=== PATIENT | female | born 1985 | race Caucasian/White ===

== ENCOUNTER 2023-03-31 09:52 | Outpatient (REF) | payer OTHER, SELFPAY ==
--- NOTE | ~2023-03-31 | US_ITS ---
EXAMINATION: US THYROID CLINICAL INFORMATION: Goiter. COMPARISON: Ultrasound soft tissue head/neck thyroid dated 02/17/2015. TECHNIQUE: Linear transducer grayscale and color Doppler examination with attention to the region of the thyroid. FINDINGS: SIZE: Measurements of the thyroid lobes and nodules are given in sagittal, anteroposterior and transverse dimensions respectively. Right Thyroid Lobe: 5.1 x 1.1 x 1.3 cm, volume 3.8 mL. Previously 4.3 x 1.1 x 1.7 cm, volume 3.8 mL. Parenchyma: The gland echotexture is homogeneous. Thyroid vascularity is normal. Left Thyroid Lobe: 5.3 x 0.7 x 1.7 cm, volume 3.3 mL. Previously 4.3 x 0.9 x 1.4 cm, volume 3.0 mL. Parenchyma: The gland echotexture is homogeneous. Thyroid vascularity is normal. Isthmus: 0.15 cm in maximum AP dimension. Previously 0.2 cm. Estimated total number of nodules greater than or equal to 1 cm: 0. [employer] nodules are described as follows: 1. Location: Right superior. Size: 0.24 x 0.13 x 0.21 cm, volume 0.003 mL. Previously: Not documented on the prior study. Nodule characteristics: Composition: Cystic(0). ACR TI-RADS total points: 0 ACR TI-RADS category: 1 NODES: There are small prominent lymph nodes in the right level 2 measuring 2.0 x 0.7 x 1.7 cm and 1.6 x 0.4 x 1.5 cm. Level 2 left neck lymph node measures 1.3 x 0.6 x 1.3 cm. US/US thyroid IMPRESSION: Unremarkable thyroid ultrasound with solitary benign right thyroid nodule visualized. Benign-appearing bilateral neck lymph nodes.
== END 2023-03-31 09:53 | disposition home or self-care (01) ==
LOC: HO.HMGCX 09:52
PROVIDERS: PCP Family Medicine; Visit Provider Family Medicine
DX: E04.9 Nontoxic goiter, unspecified (principal)
CPT/HCPCS: 76536